=== PATIENT | female | born 1930 | race Caucasian/White ===

== ENCOUNTER → 2017-12-10 | Outpatient (REF) | payer OTHER, MEDICARE, MEDICAID ==
[2017-10-04 11:12] VITALS: BMI 26.7
[~2017-12-10] MED LIST: ACET-1966 PO; CEPH250C37 PO; DICL100G39 TOP; DULO30CA6 PO; DULO60CA7 PO; ESTR0.62 VA; ESTR42.5 VA; ESTR42.59 VG; FLUINH INH; GABA-547 PO; GABA-549 PO; HYDR-4309 PO; LEVO75TA68 PO; LISI20TA29 PO; LOR5/325 PO; MELA3TAB31 PO; NITR-105 PO; ONDA4TAB PO; VIT-7 PO; duloxetine
== END ==
LOC: ZZLCC 13:26
PROVIDERS: ATTEND Family Medicine
DX: R82.99 Other abnormal findings in urine (principal)
CPT/HCPCS: 81001; 87088

== ENCOUNTER → 2018-02-02 | Outpatient (REF) | payer OTHER, MEDICARE, MEDICAID ==
[2017-10-04 11:12] VITALS: BMI 26.7
== END ==
LOC: ZZLCC 14:51
PROVIDERS: ATTEND Family Medicine
DX: Z87.440 Personal history of urinary (tract) infections (principal)
CPT/HCPCS: 81001; 87088

== ENCOUNTER → 2018-02-03 | Outpatient (REF) | payer OTHER, MEDICARE, MEDICAID ==
[2017-10-04 11:12] VITALS: BMI 26.7
== END ==
LOC: ZZLCC 16:06
PROVIDERS: ATTEND Family Medicine
DX: Z87.440 Personal history of urinary (tract) infections (principal)
CPT/HCPCS: 81001; 87088